=== PATIENT | male | born 1940 | race Caucasian/White ===

== ENCOUNTER 2017-08-30 08:58 | Inpatient (IN) | payer MEDICARE, OTHER ==
[~2017-08-30] VITALS: Ht 170.2 cm; Wt 82.6 kg
[~2017-08-30 08:58] MED LIST: CIPR-259 PO; METR500T4 PO
[2017-08-30] MEDS ORDERED: ondansetron/PF 4mg/2ml inj IV PRN ×2 (09:15→16:10)
[2017-08-30] MEDS ORDERED: normal saline 1000ML IV soln IVB ONE (09:15)
[2017-08-30 09:49] LABS: BASOPHILS % (AUTO) 0.2 % (0-1); EOSINOPHILS % (AUTO) 0.3 % (0-6); HEMOGLOBIN 14.4 g/dl (14.0-17.9); LYMPHOCYTES # (AUTO) 1.3 X10'3 (1.1-4.8); LYMPHOCYTES % (AUTO) 8.8 % (21-51); MEAN CORPUSCULAR HEMOGLOBIN 29.9 PG (27.0-31.0); MEAN CORPUSCULAR HGB CONC 32.8 % (33.0-36.5); MEAN PLATELET VOLUME 7.6 FL (7.4-10.4); MONOCYTES # (AUTO) 1.7 X10'3 (0-0.9); MONOCYTES % (AUTO) 12.3 % (2-12); NEUTROPHILS # (AUTO) 11.1 X10'3 (1.8-7.7); NEUTROPHILS % (AUTO) 78.4 % (42-75); PLATELET COUNT 422 X10'3 (140-440); RED BLOOD COUNT 4.84 X10'6 (4.70-6.10); RED CELL DISTRIBUTION WIDTH 12.3 % (11.5-14.5); WHITE BLOOD COUNT 14.2 X10'3 (4.5-11.0)
[2017-08-30 09:53] LABS: CLARITY,URINE CLEAR (Clear); COLOR,URINE AMBER (Yellow); GLUCOSE, URINE NEGATIVE (Neg); KETONES,URINE >=80 mg/dl (Neg); LEUKOCYTE ESTERASE ,URINE TRACE (Neg); NITRITES, URINE NEGATIVE (Neg); OCCULT BLOOD,URINE SMALL (Neg); PH,URINE 5.5 (4.8-8.0); PROTEIN,URINE TRACE mg/dl (Neg); UROBILINOGEN,URINE 0.2 E.U/dL (0.2-1.0)
[2017-08-30 09:58] LABS: UA COLLECTION TYPE URINAL
[2017-08-30 10:05] LABS: ALANINE AMINOTRANSFERASE 23 U/L (12-78); ALBUMIN 3.5 G/DL (3.4-5.0); ALBUMIN/GLOBULIN RATIO 0.8 (1.1-1.5); ALKALINE PHOSPHATASE 54 IU/L (46-116); ANION GAP 13 (8-16); ASPARTATE AMINO TRANSFERASE 27 U/L (10-37); BILIRUBIN,TOTAL 0.5 MG/DL (0.1-1.0); BLOOD UREA NITROGEN 18 MG/DL (7-18); BUN/CREATININE RATIO 13.3 (5.4-32.0); CALCIUM 9.2 MG/DL (8.5-10.1); CHLORIDE 96 MMOL/L (99-107); CREATININE 1.35 MG/DL (0.60-1.10); GLUCOSE 104 MG/DL (70-104); LIPASE 204 U/L (73-393); POTASSIUM 3.6 MMOL/L (3.5-5.1); SODIUM 133 MMOL/L (135-145); TOTAL CARBON DIOXIDE 24.2 MMOL/L (24-32); TOTAL PROTEIN 7.8 G/DL (6.4-8.2); eGFR 51 ML/MIN
[2017-08-30 10:07] LABS: COARSE GRANULAR CAST 0-3 /LPF (NEGATIVE); HYALINE CASTS 0-3 /LPF (NEGATIVE); MUCUS STRANDS MANY /LPF (Neg); SQUAMOUS EPITHELIAL CELL,UR FEW /LPF (FEW)
[2017-08-30 10:09] LABS: AMORPHOUS URATES 1+; BACTERIA,URINE NONE SEEN /HPF (Neg); RBC,URINE 0-2 /HPF (0-2); WBC,URINE 0-4 /HPF (0-4)
[2017-08-30] MEDS: diatr meglu/diatrizoate 30ml oral sol.-(3 dose) bottle PO SCH ×3 (11:29→13:48)
[2017-08-30] MEDS ORDERED: iohexol 300mg/ml 100ml inj. ONE (14:01)
[2017-08-30] MEDS ORDERED: piperacillin/tazo 3.375gm/50ml 50 ML IV ONE (15:19)
[2017-08-30] MEDS ORDERED: pantoprazole 40 MG vial IV ONE (15:40)
[2017-08-30] MEDS ORDERED: bisacodyl 10mg suppository rectal RC PRN (16:10)
[2017-08-30] MEDS ORDERED: morphine sulfate 8 MG/ML SYRINGE IV PRN ×2 (16:10)
[2017-08-30] MEDS ORDERED: acetaminophen 650mg rectal suppository RC PRN (16:10)
[2017-08-30] MEDS: normal saline 1000ml 1,000 ML IV SCH (16:24)
[2017-08-30] MEDS ORDERED: LISI10TA4 PO (17:28)
[2017-08-30] MEDS ORDERED: HYDR25TA4 PO (17:28)
[2017-08-30] MEDS ORDERED: GLUC1TAB21 PO (17:28)
[2017-08-30] MEDS ORDERED: POTA8TAB8 PO (17:28)
[2017-08-30] MEDS ORDERED: NAPR500T4 PO (17:28)
[2017-08-30 20:00] VITALS: BP 126/58
[2017-08-30] MEDS: heparin, porcine 5000 units/ml vial SQ SCH (20:00)
[2017-08-30] MEDS ORDERED: temazepam 15mg capsule PO PRN (21:00)
[2017-08-30] MEDS: piperacillin/tazo 3.375gm/50ml 50 ML IV SCH (23:32)
[2017-08-31] VITALS: BP 127/68
[2017-08-31] MEDS: normal saline 1000ml 1,000 ML IV SCH ×3 (02:08→17:24)
[2017-08-31 05:18] LABS: BASOPHILS % (AUTO) 0.1 % (0-1); EOSINOPHILS # (AUTO) 0.2 X10'3 (0-0.9); EOSINOPHILS % (AUTO) 1.3 % (0-6); HEMATOCRIT 38.2 % (42.0-52.0); HEMOGLOBIN 12.6 g/dl (14.0-17.9); LYMPHOCYTES # (AUTO) 1.3 X10'3 (1.1-4.8); LYMPHOCYTES % (AUTO) 9.7 % (21-51); MEAN CORPUSCULAR HEMOGLOBIN 30.3 PG (27.0-31.0); MEAN CORPUSCULAR VOLUME 91.8 FL (78-98); MEAN PLATELET VOLUME 7.5 FL (7.4-10.4); MONOCYTES # (AUTO) 1.8 X10'3 (0-0.9); MONOCYTES % (AUTO) 13.8 % (2-12); NEUTROPHILS % (AUTO) 75.1 % (42-75); PLATELET COUNT 384 X10'3 (140-440); RED BLOOD COUNT 4.17 X10'6 (4.70-6.10); RED CELL DISTRIBUTION WIDTH 12.2 % (11.5-14.5); WHITE BLOOD COUNT 13.3 X10'3 (4.5-11.0)
[2017-08-31 05:30] LABS: ALBUMIN 2.7 G/DL (3.4-5.0); ANION GAP 8 (8-16); BLOOD UREA NITROGEN 17 MG/DL (7-18); BUN/CREATININE RATIO 13.8 (5.4-32.0); CALCIUM 8.2 MG/DL (8.5-10.1); CHLORIDE 103 MMOL/L (99-107); CREATININE 1.23 MG/DL (0.60-1.10); GLUCOSE 90 MG/DL (70-104); SODIUM 137 MMOL/L (135-145); TOTAL CARBON DIOXIDE 26.1 MMOL/L (24-32); eGFR 57 ML/MIN
[2017-08-31] MEDS: piperacillin/tazo 3.375gm/50ml 50 ML IV SCH ×3 (07:00→23:14)
[2017-08-31 07:22] VITALS: BP 117/58
[2017-08-31] MEDS: heparin, porcine 5000 units/ml vial SQ SCH ×2 (08:00→19:33)
[2017-08-31 11:15] VITALS: BP 126/63
[2017-08-31] MEDS: lactobacillus rhamnosus 10,000 MMU CELLS/CAPSULE PO SCH (17:11)
[2017-08-31 20:00] VITALS: BP 140/73
[2017-09-01] VITALS (14 sets, daily range): BP systolic 114–159; BP diastolic 55–91
[2017-09-01] MEDS: normal saline 1000ml 1,000 ML IV SCH ×2 (05:15→17:22)
[2017-09-01 05:17] LABS: BASOPHILS % (AUTO) 0.1 % (0-1); EOSINOPHILS # (AUTO) 0.2 X10'3 (0-0.9); EOSINOPHILS % (AUTO) 1.6 % (0-6); HEMATOCRIT 36.5 % (42.0-52.0); HEMOGLOBIN 11.9 g/dl (14.0-17.9); LYMPHOCYTES # (AUTO) 0.8 X10'3 (1.1-4.8); LYMPHOCYTES % (AUTO) 6.6 % (21-51); MEAN CORPUSCULAR HGB CONC 32.6 % (33.0-36.5); MEAN CORPUSCULAR VOLUME 92.1 FL (78-98); MEAN PLATELET VOLUME 7.4 FL (7.4-10.4); MONOCYTES # (AUTO) 1.8 X10'3 (0-0.9); MONOCYTES % (AUTO) 13.8 % (2-12); NEUTROPHILS % (AUTO) 77.9 % (42-75); PLATELET COUNT 367 X10'3 (140-440); RED BLOOD COUNT 3.97 X10'6 (4.70-6.10); RED CELL DISTRIBUTION WIDTH 12.6 % (11.5-14.5); WHITE BLOOD COUNT 12.8 X10'3 (4.5-11.0)
[2017-09-01 05:23] LABS: ALBUMIN 2.5 G/DL (3.4-5.0); ANION GAP 9 (8-16); BLOOD UREA NITROGEN 19 MG/DL (7-18); CALCIUM 8.2 MG/DL (8.5-10.1); CHLORIDE 107 MMOL/L (99-107); CREATININE 1.12 MG/DL (0.60-1.10); GLUCOSE 85 MG/DL (70-104); POTASSIUM 3.9 MMOL/L (3.5-5.1); SODIUM 143 MMOL/L (135-145); eGFR 63 ML/MIN
[2017-09-01] MEDS: heparin, porcine 5000 units/ml vial SQ SCH ×2 (06:16→20:00)
[2017-09-01] MEDS: lactobacillus rhamnosus 10,000 MMU CELLS/CAPSULE PO SCH ×2 (07:30→16:42)
[2017-09-01] MEDS: piperacillin/tazo 3.375gm/50ml 50 ML IV SCH ×2 (07:59→16:31)
[2017-09-01] MEDS ORDERED: NO HOME MEDS (11:39)
[2017-09-01 14:08] LABS: INR 1.2 INR; PARTIAL THROMBOPLASTIN TIME 27 SECONDS (22-32)
[2017-09-01 14:12] LABS: ALANINE AMINOTRANSFERASE 20 U/L (12-78); ALBUMIN 2.5 G/DL (3.4-5.0); ALBUMIN/GLOBULIN RATIO 0.8 (1.1-1.5); ALKALINE PHOSPHATASE 39 IU/L (46-116); ANION GAP 7 (8-16); ASPARTATE AMINO TRANSFERASE 21 U/L (10-37); BILIRUBIN,TOTAL 0.4 MG/DL (0.1-1.0); BLOOD UREA NITROGEN 18 MG/DL (7-18); BUN/CREATININE RATIO 18.2 (5.4-32.0); CALCIUM 8.1 MG/DL (8.5-10.1); CHLORIDE 109 MMOL/L (99-107); CREATININE 0.99 MG/DL (0.60-1.10); GLUCOSE 83 MG/DL (70-104); POTASSIUM 4.1 MMOL/L (3.5-5.1); SODIUM 143 MMOL/L (135-145); TOTAL CARBON DIOXIDE 27.1 MMOL/L (24-32); TOTAL PROTEIN 5.7 G/DL (6.4-8.2); eGFR 73 ML/MIN
[2017-09-01] MEDS ORDERED: LIDOcaine 1% 30ml vial ONE (17:55)
[2017-09-01] MEDS ORDERED: ROPIVAcaine 0.5% (5mg/ml) 30ml vial ONE (17:55)
[2017-09-01] MEDS ORDERED: BUPIVAcaine/PF 2.5 mg/ml (0.25%) 30ml vial ONE (17:55)
[2017-09-01] MEDS ORDERED: ringers solution, lacted 1,000 ML IV SCH (19:56)
[2017-09-01] MEDS ORDERED: hydrALAZINE 20mg/ml inj. IV PRN (20:00)
[2017-09-01] MEDS ORDERED: meperidine/PF 25mg/ml syringe IV ONE (20:00)
[2017-09-01] MEDS ORDERED: proCHLORperazine 10 MG/2 ml inj IV PRN (20:00)
[2017-09-01] MEDS ORDERED: labetalol 20mg/4ml (5mg/ml) syringe IV PRN (20:00)
[2017-09-01] MEDS ORDERED: morphine sulfate 8 MG/ML SYRINGE IV PRN ×2 (20:00)
[2017-09-01] MEDS ORDERED: ondansetron/PF 4mg/2ml inj IV PRN (20:00)
[2017-09-01] MEDS ORDERED: meperidine/PF 25mg/ml syringe IV PRN ×2 (20:00)
[2017-09-01] MEDS ORDERED: neostigmine methylsulfate 1 MG/ML 10ml vial ONE (20:20)
[2017-09-01] MEDS ORDERED: sevoflurane 250ml liquid IH ONE (20:20)
[2017-09-01] MEDS ORDERED: glycopyrrolate 0.2mg/ml inj ONE (20:20)
[2017-09-01] MEDS ORDERED: fentaNYL/PF 50MCG/1 ML 2ML syringe ONE ×2 (20:32→21:25)
[2017-09-01] MEDS ORDERED: midazolam 2 mg/2 ml injection ONE (20:33)
[2017-09-01] MEDS ORDERED: rocuronium 10mg/ml inj IV ONE (21:25)
[2017-09-01] MEDS ORDERED: LIDOcaine 2% (20mg/ml) 5ml vial ONE (21:25)
[2017-09-01] MEDS ORDERED: propofol inj 20 ML IV ONE (21:25)
[2017-09-01] MEDS ORDERED: ondansetron/PF 4mg/2ml inj ONE (22:00)
[2017-09-01] MEDS ORDERED: naloxone 0.4 mg/ml inj IV PRN (22:15)
[2017-09-01] MEDS ORDERED: CADD PCA waste documentation MC PRN (22:15)
[2017-09-01] MEDS: HYDROmorphone/NS 1 mg/ml CADD 50 ML IV SCH ×2 (23:00→23:50)
[2017-09-02] VITALS (10 sets, daily range): BP systolic 114–140; BP diastolic 62–82
[2017-09-02] MEDS: piperacillin/tazo 3.375gm/50ml 50 ML IV SCH ×3 (00:51→16:10)
[2017-09-02] MEDS: HYDROmorphone/NS 1 mg/ml CADD 50 ML IV SCH ×12 (01:00→23:00)
[2017-09-02] MEDS: normal saline 1000ml 1,000 ML IV SCH ×3 (04:55→16:11)
[2017-09-02 06:03] LABS: BASOPHILS % (AUTO) 0 % (0-1); EOSINOPHILS # (AUTO) 0.3 X10'3 (0-0.9); EOSINOPHILS % (AUTO) 1.3 % (0-6); HEMATOCRIT 40.8 % (42.0-52.0); HEMOGLOBIN 13.4 g/dl (14.0-17.9); LYMPHOCYTES # (AUTO) 0.5 X10'3 (1.1-4.8); MEAN CORPUSCULAR HEMOGLOBIN 30.4 PG (27.0-31.0); MEAN PLATELET VOLUME 7.8 FL (7.4-10.4); MONOCYTES # (AUTO) 2.1 X10'3 (0-0.9); MONOCYTES % (AUTO) 8.3 % (2-12); NEUTROPHILS # (AUTO) 22.3 X10'3 (1.8-7.7); NEUTROPHILS % (AUTO) 88.4 % (42-75); PLATELET COUNT 368 X10'3 (140-440); RED BLOOD COUNT 4.43 X10'6 (4.70-6.10); RED CELL DISTRIBUTION WIDTH 12.5 % (11.5-14.5)
[2017-09-02 06:13] LABS: ALBUMIN 2.5 G/DL (3.4-5.0); ANION GAP 12 (8-16); BLOOD UREA NITROGEN 20 MG/DL (7-18); BUN/CREATININE RATIO 17.2 (5.4-32.0); CALCIUM 7.9 MG/DL (8.5-10.1); CHLORIDE 108 MMOL/L (99-107); CREATININE 1.16 MG/DL (0.60-1.10); GLUCOSE 139 MG/DL (70-104); POTASSIUM 4.6 MMOL/L (3.5-5.1); SODIUM 145 MMOL/L (135-145); TOTAL CARBON DIOXIDE 25.2 MMOL/L (24-32); eGFR 61 ML/MIN
[2017-09-02 07:06] LABS: WHITE BLOOD COUNT 25.2 X10'3 (4.5-11.0)
[2017-09-02] MEDS: lactobacillus rhamnosus 10,000 MMU CELLS/CAPSULE PO SCH ×2 (07:30→17:30)
[2017-09-02] MEDS: heparin, porcine 5000 units/ml vial SQ SCH ×2 (07:48→19:15)
[2017-09-02 10:02] LABS: TOTAL CELLS COUNTED 100
[2017-09-02 10:07] LABS: PLATELET ESTIMATE NORMAL
[2017-09-02] MEDS ORDERED: benzocaine/menthol oral lozeng 1 EACH BOX MM PRN ×2 (21:00)
[2017-09-03] VITALS: BP 136/69
[2017-09-03] MEDS: piperacillin/tazo 3.375gm/50ml 50 ML IV SCH ×2 (00:13→08:02)
[2017-09-03] MEDS: HYDROmorphone/NS 1 mg/ml CADD 50 ML IV SCH ×12 (01:00→23:00)
[2017-09-03 06:22] LABS: BASOPHILS % (AUTO) 0.2 % (0-1); EOSINOPHILS % (AUTO) 0.2 % (0-6); HEMATOCRIT 34.1 % (42.0-52.0); HEMOGLOBIN 11.8 g/dl (14.0-17.9); LYMPHOCYTES # (AUTO) 1.1 X10'3 (1.1-4.8); LYMPHOCYTES % (AUTO) 6.7 % (21-51); MEAN CORPUSCULAR HEMOGLOBIN 31.3 PG (27.0-31.0); MEAN CORPUSCULAR HGB CONC 34.6 % (33.0-36.5); MEAN CORPUSCULAR VOLUME 90.6 FL (78-98); MEAN PLATELET VOLUME 8.1 FL (7.4-10.4); MONOCYTES # (AUTO) 2.1 X10'3 (0-0.9); MONOCYTES % (AUTO) 13.1 % (2-12); NEUTROPHILS # (AUTO) 13.1 X10'3 (1.8-7.7); NEUTROPHILS % (AUTO) 79.8 % (42-75); PLATELET COUNT 319 X10'3 (140-440); RED BLOOD COUNT 3.77 X10'6 (4.70-6.10); WHITE BLOOD COUNT 16.3 X10'3 (4.5-11.0)
[2017-09-03 06:23] LABS: ALBUMIN 2.3 G/DL (3.4-5.0); ANION GAP 6 (8-16); BLOOD UREA NITROGEN 20 MG/DL (7-18); BUN/CREATININE RATIO 18.5 (5.4-32.0); CALCIUM 8.2 MG/DL (8.5-10.1); CHLORIDE 111 MMOL/L (99-107); CREATININE 1.08 MG/DL (0.60-1.10); GLUCOSE 124 MG/DL (70-104); POTASSIUM 3.6 MMOL/L (3.5-5.1); SODIUM 146 MMOL/L (135-145); eGFR 66 ML/MIN
[2017-09-03] MEDS: lactobacillus rhamnosus 10,000 MMU CELLS/CAPSULE PO SCH (07:30)
[2017-09-03] MEDS: heparin, porcine 5000 units/ml vial SQ SCH ×2 (08:03→20:59)
[2017-09-03] MEDS: normal saline 1000ml 1,000 ML IV SCH (10:08)
[2017-09-03 10:19] LABS: PLATELET ESTIMATE NORMAL; TOTAL CELLS COUNTED 100
[2017-09-03 11:30] VITALS: BP 133/64
[2017-09-03] MEDS ORDERED: piperacillin/tazo 3.375gm/50ml 50 ML IV SCH (14:00)
[2017-09-03] MEDS: potassium CL 20mEq in D5-1/2NS 1,000 ML IV SCH (15:50)
[2017-09-03 20:00] VITALS: BP 125/67
[2017-09-03] MEDS: ketorolac tromethamine 15mg/ml inj. IV SCH (20:58)
[2017-09-04] VITALS: BP 126/67
[2017-09-04] MEDS: HYDROmorphone/NS 1 mg/ml CADD 50 ML IV SCH ×12 (01:00→22:58)
[2017-09-04] MEDS: ketorolac tromethamine 15mg/ml inj. IV SCH ×4 (02:00→21:39)
[2017-09-04] MEDS: potassium CL 20mEq in D5-1/2NS 1,000 ML IV SCH ×3 (02:04→17:15)
[2017-09-04 05:56] LABS: BASOPHILS % (AUTO) 0.1 % (0-1); EOSINOPHILS # (AUTO) 0.3 X10'3 (0-0.9); EOSINOPHILS % (AUTO) 2.3 % (0-6); HEMATOCRIT 29.9 % (42.0-52.0); HEMOGLOBIN 9.9 g/dl (14.0-17.9); LYMPHOCYTES # (AUTO) 0.9 X10'3 (1.1-4.8); LYMPHOCYTES % (AUTO) 6.9 % (21-51); MEAN CORPUSCULAR HEMOGLOBIN 30.1 PG (27.0-31.0); MEAN CORPUSCULAR VOLUME 91.2 FL (78-98); MEAN PLATELET VOLUME 7.4 FL (7.4-10.4); MONOCYTES # (AUTO) 1.4 X10'3 (0-0.9); MONOCYTES % (AUTO) 10.4 % (2-12); NEUTROPHILS # (AUTO) 10.8 X10'3 (1.8-7.7); NEUTROPHILS % (AUTO) 80.3 % (42-75); PLATELET COUNT 280 X10'3 (140-440); RED BLOOD COUNT 3.28 X10'6 (4.70-6.10); RED CELL DISTRIBUTION WIDTH 12.9 % (11.5-14.5); WHITE BLOOD COUNT 13.4 X10'3 (4.5-11.0)
[2017-09-04 06:13] LABS: ANION GAP 3 (8-16); BLOOD UREA NITROGEN 25 MG/DL (7-18); CALCIUM 8.2 MG/DL (8.5-10.1); CHLORIDE 113 MMOL/L (99-107); CREATININE 0.96 MG/DL (0.60-1.10); GLUCOSE 152 MG/DL (70-104); POTASSIUM 3.7 MMOL/L (3.5-5.1); SODIUM 146 MMOL/L (135-145); TOTAL CARBON DIOXIDE 29.9 MMOL/L (24-32); eGFR 76 ML/MIN
[2017-09-04 07:30] VITALS: BP 115/60
[2017-09-04] MEDS: heparin, porcine 5000 units/ml vial SQ SCH ×2 (08:05→23:01)
[2017-09-04 11:00] VITALS: BP 118/63
[2017-09-04] MEDS ORDERED: normal saline 1000ml 1,000 ML IV ONE (15:25)
[2017-09-04 16:17] LABS: CLARITY,URINE CLOUDY (Clear); COLOR,URINE YELLOW (Yellow); GLUCOSE, URINE NEGATIVE (Neg); KETONES,URINE NEGATIVE (Neg); LEUKOCYTE ESTERASE ,URINE TRACE (Neg); NITRITES, URINE NEGATIVE (Neg); OCCULT BLOOD,URINE LARGE (Neg); PROTEIN,URINE 100 mg/dl (Neg); UROBILINOGEN,URINE 0.2 E.U/dL (0.2-1.0)
[2017-09-04 16:20] LABS: UA COLLECTION TYPE FOLEY CATH
[2017-09-04 16:21] LABS: BACTERIA,URINE FEW /HPF (Neg); MUCUS STRANDS FEW /LPF (Neg); RBC,URINE 50-100 /HPF (0-2); SQUAMOUS EPITHELIAL CELL,UR FEW /LPF (FEW); WBC,URINE 0-4 /HPF (0-4)
[2017-09-04 19:00] VITALS: BP 138/67
[2017-09-04] MEDS ORDERED: albumin (Human) 5% 250 ML IV solution IV ONE (20:10)
[2017-09-04 22:08] LABS: GASTRIC OCCULT BLOOD NEGATIVE (Neg)
[2017-09-05] VITALS: BP 104/59
[2017-09-05] MEDS: potassium CL 20mEq in D5-1/2NS 1,000 ML IV SCH ×3 (00:30→11:10)
[2017-09-05] MEDS: HYDROmorphone/NS 1 mg/ml CADD 50 ML IV SCH ×12 (01:00→23:00)
[2017-09-05] MEDS ORDERED: normal saline 500ml IV soln 1,000 ML IV ONE (01:10)
[2017-09-05] MEDS ORDERED: dextrose 5% water 500ml 500 ML IV ONE (01:45)
[2017-09-05] MEDS ORDERED: normal saline 500ml IV soln 500 ML IV ONE (01:45)
[2017-09-05] MEDS: ketorolac tromethamine 15mg/ml inj. IV SCH ×3 (02:00→14:36)
[2017-09-05 07:00] VITALS: BP 99/55
[2017-09-05] MEDS: heparin, porcine 5000 units/ml vial SQ SCH ×2 (08:14→20:32)
[2017-09-05] MEDS: ringers solution, lacted 1,000 ML IV SCH ×2 (10:30→16:21)
[2017-09-05 12:00] VITALS: BP 114/55
[2017-09-05] MEDS ORDERED: ringers solution, lacted 1,000 ML IV ONE (13:50)
[2017-09-05] MEDS ORDERED: furosemide 20 MG/2 ML vial IV ONE (17:10)
[2017-09-05] MEDS ORDERED: albumin (human) 25% 100 ML IV solution IV ONE (17:10)
[2017-09-05 19:00] VITALS: BP 133/60
[2017-09-06] VITALS: BP 118/65
[2017-09-06] MEDS: potassium CL 20mEq in D5-1/2NS 1,000 ML IV SCH ×2 (00:30→15:33)
[2017-09-06] MEDS: HYDROmorphone/NS 1 mg/ml CADD 50 ML IV SCH ×12 (01:00→23:00)
[2017-09-06] MEDS: ringers solution, lacted 1,000 ML IV SCH (02:35)
[2017-09-06 08:00] VITALS: BP 125/55
[2017-09-06] MEDS ORDERED: methylnaltrexone br 12mg/0.6ml inj***SubQ only SQ SCH (08:00)
[2017-09-06] MEDS: heparin, porcine 5000 units/ml vial SQ SCH ×2 (08:29→20:22)
[2017-09-06 11:00] VITALS: BP 132/57
[2017-09-06] MEDS ORDERED: pantoprazole 40 MG vial IV ONE (13:30)
[2017-09-06 14:14] LABS: BASOPHILS % (AUTO) 0.1 % (0-1); EOSINOPHILS # (AUTO) 0.2 X10'3 (0-0.9); EOSINOPHILS % (AUTO) 1.8 % (0-6); HEMATOCRIT 28.4 % (42.0-52.0); HEMOGLOBIN 9.3 g/dl (14.0-17.9); LYMPHOCYTES % (AUTO) 9.4 % (21-51); MEAN CORPUSCULAR HEMOGLOBIN 30.1 PG (27.0-31.0); MEAN CORPUSCULAR HGB CONC 32.8 % (33.0-36.5); MEAN CORPUSCULAR VOLUME 91.8 FL (78-98); MEAN PLATELET VOLUME 7.3 FL (7.4-10.4); MONOCYTES # (AUTO) 1.3 X10'3 (0-0.9); MONOCYTES % (AUTO) 11.4 % (2-12); NEUTROPHILS # (AUTO) 8.6 X10'3 (1.8-7.7); NEUTROPHILS % (AUTO) 77.3 % (42-75); PLATELET COUNT 277 X10'3 (140-440); RED BLOOD COUNT 3.09 X10'6 (4.70-6.10); RED CELL DISTRIBUTION WIDTH 12.8 % (11.5-14.5); WHITE BLOOD COUNT 11.1 X10'3 (4.5-11.0)
[2017-09-06 14:25] LABS: ALBUMIN 2.8 G/DL (3.4-5.0); ANION GAP 6 (8-16); BLOOD UREA NITROGEN 24 MG/DL (7-18); CALCIUM 8.6 MG/DL (8.5-10.1); CHLORIDE 113 MMOL/L (99-107); GLUCOSE 91 MG/DL (70-104); MAGNESIUM 2.1 MG/DL (1.5-2.4); POTASSIUM 3.8 MMOL/L (3.5-5.1); SODIUM 153 MMOL/L (135-145); TOTAL CARBON DIOXIDE 33.8 MMOL/L (24-32); eGFR 72 ML/MIN
[2017-09-06 20:15] VITALS: BP 120/57
[2017-09-07 00:20] VITALS: BP 121/58
[2017-09-07] MEDS: potassium CL 20mEq in D5-1/2NS 1,000 ML IV SCH (00:37)
[2017-09-07] MEDS: HYDROmorphone/NS 1 mg/ml CADD 50 ML IV SCH ×4 (01:00→07:00)
[2017-09-07 07:00] VITALS: BP 145/67
[2017-09-07] MEDS: heparin, porcine 5000 units/ml vial SQ SCH (09:19)
[2017-09-07] MEDS: Potassium Cl inj 20 MEQ in dextrose 5%-water 990 ML IV SCH ×2 (10:15→20:19)
[2017-09-07] MEDS ORDERED: tamsulosin 0.4mg capsule PO ONE (10:55)
[2017-09-07 11:00] VITALS: BP 146/68
[2017-09-07] MEDS ORDERED: HYDROcodone/acetaminophen 5mg/325mg tablet PO PRN (11:05)
[2017-09-07] MEDS ORDERED: pantoprazole 40 MG vial IV ONE (11:05)
[2017-09-07 20:00] VITALS: BP 110/58
[2017-09-08] VITALS: BP 109/57
[2017-09-08 06:16] LABS: BASOPHILS % (AUTO) 0.2 % (0-1); EOSINOPHILS # (AUTO) 0.3 X10'3 (0-0.9); EOSINOPHILS % (AUTO) 3.2 % (0-6); HEMATOCRIT 28.9 % (42.0-52.0); HEMOGLOBIN 9.5 g/dl (14.0-17.9); LYMPHOCYTES # (AUTO) 1.3 X10'3 (1.1-4.8); LYMPHOCYTES % (AUTO) 12.5 % (21-51); MEAN CORPUSCULAR HEMOGLOBIN 29.9 PG (27.0-31.0); MEAN CORPUSCULAR VOLUME 90.6 FL (78-98); MEAN PLATELET VOLUME 7.9 FL (7.4-10.4); MONOCYTES # (AUTO) 1.4 X10'3 (0-0.9); MONOCYTES % (AUTO) 13.4 % (2-12); NEUTROPHILS # (AUTO) 7.5 X10'3 (1.8-7.7); NEUTROPHILS % (AUTO) 70.7 % (42-75); PLATELET COUNT 264 X10'3 (140-440); RED BLOOD COUNT 3.19 X10'6 (4.70-6.10); RED CELL DISTRIBUTION WIDTH 12.8 % (11.5-14.5); WHITE BLOOD COUNT 10.6 X10'3 (4.5-11.0)
[2017-09-08 06:36] LABS: ALBUMIN 2.1 G/DL (3.4-5.0); ANION GAP 6 (8-16); BLOOD UREA NITROGEN 14 MG/DL (7-18); BUN/CREATININE RATIO 15.1 (5.4-32.0); CALCIUM 7.7 MG/DL (8.5-10.1); CHLORIDE 109 MMOL/L (99-107); CREATININE 0.93 MG/DL (0.60-1.10); GLUCOSE 111 MG/DL (70-104); POTASSIUM 3.8 MMOL/L (3.5-5.1); SODIUM 143 MMOL/L (135-145); TOTAL CARBON DIOXIDE 28.5 MMOL/L (24-32); eGFR 78 ML/MIN
[2017-09-08 08:18] VITALS: BP 140/70
[2017-09-08] MEDS: Potassium Cl inj 20 MEQ in dextrose 5%-water 990 ML IV SCH (09:35)
[2017-09-08] MEDS ORDERED: magnesium hydroxide 30ml (MOM) UD suspension PO ONE (10:25)
[2017-09-08 11:00] VITALS: BP 110/67
[2017-09-08 19:30] VITALS: BP 131/53
[2017-09-08 23:45] VITALS: BP 111/55
[2017-09-09 07:12] VITALS: BP 116/62
[2017-09-09] MEDS ORDERED: HYDR-569 PO (09:38)
== END 2017-09-09 13:05 | disposition home or self-care (01) | DRG 329 ==
LOC: ER 08:58 → ED HOLD 16:08 → CMPBEDREQ 19:52 → SUR 3N 20:00 → UNDODISIN 09-04 19:15
PROVIDERS: ADMIT Family Medicine; ATTEND Internal Medicine
PROC: BW211ZZ Computerized Tomography (CT Scan) of Abdomen and Pelvis using Low Osmolar Contrast (ICD-10-PCS; 2017-08-30)
PROC: BW211ZZ Computerized Tomography (CT Scan) of Abdomen and Pelvis using Low Osmolar Contrast (ICD-10-PCS; 2017-08-31)
PROC: 0DTF0ZZ Resection of Right Large Intestine, Open Approach (ICD-10-PCS; principal; 2017-09-01 20:20)
DX: C18.0 Malignant neoplasm of cecum (principal); N17.0 Acute kidney failure with tubular necrosis; K56.609 Unspecified intestinal obstruction, unspecified as to partial versus complete obstruction; E87.0 Hyperosmolality and hypernatremia; R18.8 Other ascites; K56.7 Ileus, unspecified; K52.9 Noninfective gastroenteritis and colitis, unspecified; I10 Essential (primary) hypertension; R59.0 Localized enlarged lymph nodes; J44.9 Chronic obstructive pulmonary disease, unspecified; Z88.8 Allergy status to other drugs, medicaments and biological substances; Z79.899 Other long term (current) drug therapy
CPT/HCPCS: 36415; 71010; 74000; 74176; 74177; 80048; 80053; 81001; 82103; 82271; 82378; 83605; 83690; 83735; 84145; 85025; 85610; 85730; 86885; 86900; 86901; 87040; 87070; 87088; 93005; 96361; 96374; 99285; A6253; A6402; A6449; A7000; C1758; C9113; J1170; J1644; J1885; J1940; J2001; J2175; J2212; J2250; J2270; J2405; J2543; J2704; J2710; J2795; J3010; J3480; J3490; J7030; J7060; J7070; J7120; P9045; P9047; Q9963; Q9967

== ENCOUNTER 2017-12-01 10:49 | Day surgery (SDC) | payer MEDICARE, OTHER ==
[2017-12-01] VITALS (14 sets, daily range): BP systolic 96–148; BP diastolic 40–69
[~2017-12-01] VITALS: Ht 167.6 cm; Wt 78.5 kg
[~2017-12-01 10:49] MED LIST changes: -CIPR-259 PO; +HYDR-569 PO; -METR500T4 PO
[2017-12-01] MEDS ORDERED: NAPR-56 PO (11:40)
[2017-12-01] MEDS ORDERED: GLUC-133 PO (11:40)
[2017-12-01] MEDS ORDERED: POTA8CAP9 PO (11:40)
[2017-12-01] MEDS ORDERED: ONDA8TAB13 PO (11:40)
[2017-12-01] MEDS ORDERED: PROC-8 PO (11:40)
[2017-12-01] MEDS ORDERED: HCTZ25T PO (11:40)
[2017-12-01] MEDS ORDERED: LISI-600 PO (11:40)
[2017-12-01] MEDS ORDERED: normal saline 1000ml 1,000 ML IV PRN (11:55)
[2017-12-01 12:13] LABS: BASOPHILS % (AUTO) 0.2 % (0-1); EOSINOPHILS % (AUTO) 0.5 % (0-6); HEMATOCRIT 37.6 % (42.0-52.0); HEMOGLOBIN 12.6 g/dl (14.0-17.9); LYMPHOCYTES # (AUTO) 1.6 X10'3 (1.1-4.8); LYMPHOCYTES % (AUTO) 21.7 % (21-51); MEAN CORPUSCULAR HEMOGLOBIN 28.7 PG (27.0-31.0); MEAN CORPUSCULAR HGB CONC 33.6 % (33.0-36.5); MEAN CORPUSCULAR VOLUME 85.5 FL (78-98); MEAN PLATELET VOLUME 8.4 FL (7.4-10.4); MONOCYTES # (AUTO) 1.5 X10'3 (0-0.9); MONOCYTES % (AUTO) 19.8 % (2-12); NEUTROPHILS # (AUTO) 4.4 X10'3 (1.8-7.7); NEUTROPHILS % (AUTO) 57.8 % (42-75); PLATELET COUNT 161 X10'3 (140-440); WHITE BLOOD COUNT 7.6 X10'3 (4.5-11.0)
[2017-12-01 12:21] LABS: ALBUMIN 3.2 G/DL (3.4-5.0); ANION GAP 12 (8-16); BLOOD UREA NITROGEN 13 MG/DL (7-18); BUN/CREATININE RATIO 12.1 (5.4-32.0); CALCIUM 9.3 MG/DL (8.5-10.1); CHLORIDE 106 MMOL/L (99-107); CREATININE 1.07 MG/DL (0.60-1.10); GLUCOSE 83 MG/DL (70-104); INR 1.3 INR; POTASSIUM 3.9 MMOL/L (3.5-5.1); PROTHROMBIN TIME 12.9 SECONDS (9.0-12.0); SODIUM 141 MMOL/L (135-145); TOTAL CARBON DIOXIDE 22.8 MMOL/L (24-32); eGFR 67 ML/MIN
[2017-12-01] MEDS ORDERED: fentaNYL/PF 50MCG/1 ML 2ML syringe IV ONE (12:35)
[2017-12-01] MEDS ORDERED: MIDAZolam 5mg/ml 2ml vial IV ONE (12:35)
[2017-12-01] MEDS ORDERED: HYDROcodone/acetaminophen 5mg/325mg tablet PO PRN ×2 (13:50)
== END 2017-12-01 16:00 | disposition home or self-care (01) ==
LOC: SSTAY O 10:49
PROVIDERS: ATTEND Radiology Diagnostic Radiology
DX: C78.7 Secondary malignant neoplasm of liver and intrahepatic bile duct (principal); C18.9 Malignant neoplasm of colon, unspecified; Z79.899 Other long term (current) drug therapy; Z88.8 Allergy status to other drugs, medicaments and biological substances; J44.9 Chronic obstructive pulmonary disease, unspecified; I10 Essential (primary) hypertension
CPT/HCPCS: 36415; 47000; 76942; 80048; 85025; 85610; J2250; J3010; J7030